=== PATIENT | male | born 1995 | race Caucasian/White ===

== ENCOUNTER 2017-07-22 12:56 | Emergency (ER) | payer SELFPAY ==
[2017-07-22 15:46] VITALS: BP 129/91
== END 2017-07-22 15:46 | disposition home or self-care (01) ==
LOC: ED 12:56
DX: S61.211A Laceration without foreign body of left index finger without damage to nail, initial encounter (principal); W45.8XXA Other foreign body or object entering through skin, initial encounter; Y93.89 Activity, other specified; Y92.89 Other specified places as the place of occurrence of the external cause; Y99.8 Other external cause status
CPT/HCPCS: 90715; J2001

== ENCOUNTER 2017-07-25 19:32 | Emergency (ER) | payer MEDICAID ==
[2017-07-25 19:46] VITALS: BP 146/80
== END 2017-07-25 20:12 | disposition home or self-care (01) ==
LOC: ED 19:32
DX: S61.211D Laceration without foreign body of left index finger without damage to nail, subsequent encounter (principal); X58.XXXD Exposure to other specified factors, subsequent encounter

== ENCOUNTER 2018-01-21 22:52 | Emergency (ER) | payer SELFPAY ==
[2018-01-22 00:20] VITALS: BP 126/76
== END 2018-01-22 00:55 | disposition home or self-care (01) ==
LOC: ED 22:52
DX: S00.31XA Abrasion of nose, initial encounter (principal); Y04.8XXA Assault by other bodily force, initial encounter; Y93.89 Activity, other specified; Y92.89 Other specified places as the place of occurrence of the external cause; Y99.8 Other external cause status